=== PATIENT | female | born 1935 | race Caucasian/White ===

== ENCOUNTER 2017-01-11 14:58 | Emergency (ER) | payer OTHER, MEDICARE ==
[~2017-01-11] VITALS: Ht 165.1 cm; Wt 80.0 kg
[~2017-01-11 14:58] MED LIST changes: -CYCL5TAB PO
[2017-01-11 15:06] VITALS: BP 139/80; PULSE 65; RESP 20; TEMP 98.1; O2SAT 94
[2017-01-11] MEDS ORDERED: ALBUAER3 INH (15:27)
[2017-01-11] MEDS ORDERED: SODIUM CHLORIDE 0.9% FLUSH 10 ML FLUSH IVF PRN (15:45)
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
[2017-01-11 16:20] LABS: AUTOMATED NEUTROPHIL # 3.6 TH/MM3 (1.8-7.7); BASOPHIL % 0.4 % (0.0-2.0); EOSINOPHIL # 0.2 TH/MM3 (0-0.4); EOSINOPHIL % 3.7 % (0.0-4.0); HEMATOCRIT 36.7 % (35.0-46.0); HEMO FLAGS DIFF FINAL; LYMPH % 26.8 % (9.0-44.0); LYMPHOCYTE # 1.7 TH/MM3 (1.0-4.8); MEAN CELL VOLUME 96.6 FL (80.0-100.0); MEAN CORPUSCULAR HEMOGLOBIN 31.5 PG (27.0-34.0); MEAN CORPUSCULAR HGB CONC 32.7 % (32.0-36.0); MONO % 11.4 % (0.0-8.0); NEUT % 57.7 % (16.0-70.0); PLATELET COUNT 181 TH/MM3 (150-450); RED CELL DISTRIBUTION WIDTH 13.3 % (11.6-17.2); WHITE BLOOD COUNT 6.3 TH/MM3 (4.0-11.0)
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
[2017-01-11 16:31] LABS: APTT (PATIENT) 28.5 SEC (24.3-30.1); INTERNATIONAL NORMALIZED RATIO 0.9 RATIO; PROTHROMBIN TIME - PATIENT 10.4 SEC (9.8-11.6)
[2017-01-11 16:41] LABS: BICARBONATE 25.5 MEQ/L (21.0-32.0); POTASSIUM 3.7 MEQ/L (3.5-5.1)
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
[2017-01-11] MEDS ORDERED: IOHEXOL 350 MG/ML 10 ML VIAL (for RAD DIAG) IV ONE (17:44)
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
[2017-01-11] MEDS ORDERED: ACETAMINOPHEN 500 MG CPLT PO ONE (18:30)
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
[2017-01-11] MEDS ORDERED: CYCL5TAB PO (19:34)
== END 2017-01-11 20:13 | disposition home or self-care (01) ==
LOC: NEPC 14:58
DX: S16.1XXA Strain of muscle, fascia and tendon at neck level, initial encounter (principal); S70.00XA Contusion of unspecified hip, initial encounter; T14.8 Other injury of unspecified body region; I10 Essential (primary) hypertension; E78.00 Pure hypercholesterolemia, unspecified; Z86.73 Personal history of transient ischemic attack (TIA), and cerebral infarction without residual deficits; Z79.899 Other long term (current) drug therapy; V49.69XA Unspecified car occupant injured in collision with other motor vehicles in traffic accident, initial encounter
CPT/HCPCS: 70450; 71010; 71260; 72125; 72128; 72131; 74177; 80048; 85025; 85610; 85730; 99285; Q9967

== ENCOUNTER → 2017-01-11 | Outpatient (CLI) | payer MEDICARE, OTHER ==
[~2017-01-11] MED LIST: ADVA100A INH; AGGR20025 PO; ALBUAER3 INH; ASPI81CH PO; ASTE0.15 EACH NARE; ATEN25TA PO; BETH25TA2 PO; CALTCHW5 PO; CYCL5TAB PO; DENO60P SQ; ESTR42.5V VAGINAL; FLUT50SP EACH NARE; LEVO.05 PO; LOVA20TA PO; LYRI150C PO; MUCI30TA2 PO; NEXI20CA PO; PILO5 PO; SPIRCAP INH
--- NOTE | 2017-01-14 09:51 | RSPPFT ---
DATE OF PROCEDURE: 01/11/17 COMMENTS: Spirometry with FVC of 2.1 predicted 2.6, FEV1 of 1.4 predicted 1.8, FEV1/FVC ratio 66% predicted 80%. No changes noticed after acutely inhaled bronchodilator treatment. IMPRESSION: On the basis of the above, patient has an obstructive lung defect with no significant response to acutely inhaled bronchodilator.
== END ==
LOC: HRSP 09:34
PROVIDERS: ATTEND Internal Medicine Pulmonary Disease
DX: J44.9 Chronic obstructive pulmonary disease, unspecified (principal)
CPT/HCPCS: 94060